=== PATIENT | male | born 1975 | race Caucasian/White ===

== ENCOUNTER 2023-07-23 13:51 | Emergency (ER) | payer OTHER ==
--- NOTE | 2023-07-23 14:56 | ED ---
General Adult HPI - General Source: patient, RN notes reviewed Mode of arrival: ambulatory Limitations: no limitations <Morris Stratton - Last Filed: 07/23/23 14:54> - General Source: patient, family, RN notes reviewed <Callie Ramsey - Last Filed: 07/23/23 20:14> <Jerry Hood - Last Filed: 07/23/23 20:34> - General Stated complaint: Galbladder Stones, Sent Pcp Time Seen by Provider: 07/23/23 14:55 - History of Present Illness Initial comments: 48-year-old male presents emergency Department chief complaint of abdominal pain. Patient states pain is right upper quadrant. Patient states he had an old shunt at PCPs office I evidence of gallstones. Patient was sent here for further evaluation. Patient states pain has been constant for the last 10 days or so. He states nothing makes the pain feel better. (Morris Stratton) Patient is a 48-year-old male presented ER with chief complaint of right upper quadrant pain. Patient was seen recently by his PCP and ultrasound of his gallbladder was completed. Patient reports that they saw multiple stones. Primary care sent him here for further evaluation. Patient reports since [place] he has been experiencing right upper quadrant pain and now back pain. It has not been able to eat much and has been having associated nausea. She reports any kind of food just makes his pain worse. Patient denies any fevers, chills, night sweats, constipation/diarrhea. (Callie Ramsey) - Related Data Allergies Allergy/AdvReac Type Severity Reaction Status Date / Time No Known Allergies Allergy Verified 07/23/23 15:23 Review of Systems ROS Other: All systems not noted in ROS Statement are negative. <Morris Stratton - Last Filed: 07/23/23 14:54> ROS Other: All systems not noted in ROS Statement are negative. <Callie Ramsey - Last Filed: 07/23/23 20:14> ROS Other: All systems not noted in ROS Statement are negative. <Jerry Hood - Last Filed: 07/23/23 20:34> ROS Statement: Those systems with pertinent positive or pertinent negative responses have been documented in the HPI. General Exam <Morris Stratton - Last Filed: 07/23/23 14:54> General appearance: alert, in no apparent distress Head exam: Present: atraumatic, normocephalic, normal inspection Respiratory exam: Present: normal lung sounds bilaterally. Absent: respiratory distress, wheezes, rales, rhonchi, stridor Cardiovascular Exam: Present: regular rate, normal rhythm, normal heart sounds. Absent: systolic murmur, diastolic murmur, rubs, gallop, clicks GI/Abdominal exam: Present: soft, tenderness (RUQ), normal bowel sounds. Absent: distended, guarding, rebound, rigid Neurological exam: Present: alert, oriented X3, CN II-XII intact Psychiatric exam: Present: normal affect, normal mood Skin exam: Present: warm, dry, intact, normal color. Absent: rash <Callie Ramsey - Last Filed: 07/23/23 20:14> - General Exam Comments Initial Comments: Visual Physical Exam Vital signs reviewed General: Well-appearing, nontoxic, no acute distress. Head: Normocephalic, atraumatic Eyes: PERRLA, EOMI ENT: Airway patent Chest: Nonlabored breathing Skin: No visual rash, normal skin tone Neuro: Alert and oriented 3 Musculoskeletal: No gross abnormalities (Morris Stratton) Course Vital Signs 07/23/23 07/23/23 15:23 18:03 Temperature 98.8 F Pulse Rate 76 67 Respiratory 20 18 Rate Blood Pressure 122/81 133/82 O2 Sat by Pulse 100 97 Oximetry Medical Decision Making <Morris Stratton - Last Filed: 07/23/23 14:54> - Lab Data Result diagrams: 07/23/23 15:33 07/23/23 15:33 <Callie Ramsey - Last Filed: 07/23/23 20:14> - Lab Data Result diagrams: 07/23/23 15:33 07/23/23 15:33 <Jerry Hood - Last Filed: 07/23/23 20:34> - Medical Decision Making I completed the quick note portion of this chart signed Morris Stratton PA-C (Morris Stratton) Was pt. sent in by a medical professional or institution ([facility], [employer], urgent care, hospital, or [facility]...) When possible be specific @ -PCP for cholelithiasis and possibly choledocholithiasis Did you speak to anyone other than the patient for history (EMS, parent, family, police, friend...)? What history was obtained from this source @ - providing some HPI Did you review nursing and triage notes (agree or disagree)? Why? @ -I reviewed and agree with nursing and triage notes Were old charts reviewed (outside hosp., previous admission, EMS record, old EKG, old radiological studies, urgent care reports/EKG's, [facility] records)? Report findings @ -Yes, I reviewed US gallbladder from 07/22/23 which showed fatty infiltration of the liver. Multiple cholelithiasis packed gallbladder. The pancreas is not adequately visualized. Common bile duct is 4 mm. Labs drawn on 07/21/23 significant for total bilirubin was 6.3, alk phos 198, AST 562, ALT 682. Differential Diagnosis (chest pain, altered mental status, abdominal pain women, abdominal pain men, vaginal bleeding, weakness, fever, dyspnea, syncope, headache, dizziness, GI bleed, back pain, seizure, CVA, palpatations, mental health, musculoskeletal)? @ -Differential Abdominal Pain Men: Appendicitis, cholecystitis, diverticulosis, ischemic bowel, pancreatitis, hepatitis, UTI, gastroenteritis, AAA, incarcerated hernia, bowel obstruction, constipation, inflammatory bowel, hepatitis, peptic ulcer disease, splenic infarction, perforated viscus, testicular torsion, this is not meant to be an all-inclusive list EKG interpreted by me (3pts min.). @ -None done X-rays interpreted by me (1pt min.). @ -None done CT interpreted by me (1pt min.). @ -None done U/S interpreted by me (1pt. min.). @ -None done What testing was considered but not performed or refused? (CT, X-rays, U/S, labs)? Why? @ -None What meds were considered but not given or refused? Why? @ -[Patient refused nausea medication, zofran. Did you discuss the management of the patient with other professionals (professionals i.e. , PA, [employer], lab, RT, psych nurse, social media coordinator, cable television line technician, teacher, administrative hearing officer, supervisor case loading)? Give summary @ None Was smoking cessation discussed for >3mins.? @ -No Was critical care preformed (if so, how long)? @ -No Were there social determinants of health that impacted care today? How? (Homelessness, low income, unemployed, alcoholism, drug addiction, transportation, low edu. Level, literacy, decrease access to med. care, chcf, rehab)? @ -No Was there de-escalation of care discussed even if they declined (Discuss DNR or withdrawal of care, Hospice)? DNR status @ -No What co-morbidities impacted this encounter? (DM, HTN, Smoking, COPD, CAD, Cancer, CVA, ARF, Chemo, Hep., AIDS, mental health diagnosis, sleep apnea, mor bid obesity)? @ -Diabetes mellitus and obesity Was patient admitted / discharged? Hospital course, mention meds given and route, prescriptions, significant lab abnormalities, going to OR and other pertinent info. @ -[Transferred. Patient is a 48-year-old male presented ER with chief complaint of right upper quadrant pain. Vitals stable. Exam was significant for extremely tender right upper quadrant, positive Tiff sign. I reviewed US gallbladder from 07/22/23 which showed fatty infiltration of the liver. Multiple cholelithiasis packed gallbladder. The pancreas is not adequately visualized. Common bile duct is 4 mm. Labs drawn on 07/21/23 significant for total bilirubin was 6.3, alk phos 198, AST 562, ALT 682. Labs obtained in the ER today are significant for white blood cell count of 10.9, total bili 1.4, AST 193, ALT 693, Alk phos 247. US gallbladder shows cholelithiasis. Common bile duct measuring 0.7 cm. Patient was started on IV maintenance fluids, pain medication, and Zosyn. Blood cultures pending. I discussed lab and imaging findings with patient and , at bedside. I discussed with patient that we do not have GI and he would have to be transferred to a facility with a higher level of care. Patient was in agreement with plan. Patient signed out to Dr. Hood pending transfer to . Undiagnosed new problem with uncertain prognosis? @ -No Drug Therapy requiring intensive monitoring for toxicity (Heparin, Nitro, Insulin, Cardizem)? @ -No Were any procedures done? @ -No Diagnosis/symptom? @ -Choledocholithiasis Acute, or Chronic, or Acute on Chronic? @ -Acute Uncomplicated (without systemic symptoms) or Complicated (systemic symptoms)? @ -Complicated Side effects of treatment? @ -No Exacerbation, Progression, or Severe Exacerbation? @ -No Poses a threat to life or bodily function? How? (Chest pain, USA, VT, pneumonia, PE, COPD, DKA, ARF, appy, cholecystitis, CVA, Diverticulitis, Homicidal, Suicidal, threat to staff... and all critical care pts) @ -Yes, choledocholithiasis can lead to sepsis. (Callie Ramsey) Patient signed out to me pending transfer. Briefly, this concern for choledocholithiasis based on ultrasound as well as laboratory workup. He is having intractable abdominal pain and nausea and vomiting. Patient will be empirically placed on Zosyn and IV fluids. Initial attempt [facility] to [facility] however they're not accepting transfers. [facility] is also close to transfers. Contacted [facility] which did accept the patient. Excepting physician is GI doctor Dr. Guajardo. ER accepting physician is Dr. Damon of [facility]. (Jerry Hood) - Lab Data Lab Results 07/23/23 07/23/23 07/23/23 Range/Units 15:33 15:33 15:33 WBC 10.9 H (3.8-10.6) k/uL RBC 5.38 (4.30-5.90) m/uL Hgb 15.7 (13.0-17.5) gm/dL Hct 49.2 (39.0-53.0) % MCV 91.3 (80.0-100.0) fL MCH 29.1 (25.0-35.0) pg MCHC 31.8 (31.0-37.0) g/dL RDW 13.5 (11.5-15.5) % Plt Count 233 (150-450) k/uL MPV 8.6 Neutrophils % 61 % Lymphocytes % 27 % Monocytes % 6 % Eosinophils % 3 % Basophils % 1 % Neutrophils # 6.6 (1.3-7.7) k/uL Lymphocytes # 3.0 (1.0-4.8) k/uL Monocytes # 0.7 (0-1.0) k/uL Eosinophils # 0.3 (0-0.7) k/uL Basophils # 0.1 (0-0.2) k/uL Sodium 139 (137-145) mmol/L Potassium 4.6 (3.5-5.1) mmol/L Chloride 103 (98-107) mmol/L Carbon Dioxide 25 (22-30) mmol/L Anion Gap 11 mmol/L BUN 16 (9-20) mg/dL Creatinine 0.72 (0.66-1.25) mg/dL Est GFR (CKD-EPI)AfAm >90 (>60 ml/min/1.73 sqM) Est GFR (CKD-EPI)NonAf >90 (>60 ml/min/1.73 sqM) Glucose 106 H (74-99) mg/dL Plasma Lactic Acid Severino 1.0 (0.7-2.0) mmol/L Calcium 9.2 (8.4-10.2) mg/dL Total Bilirubin 1.4 H (0.2-1.3) mg/dL AST 193 H (17-59) U/L ALT 693 H (4-49) U/L Alkaline Phosphatase 247 H (38-126) U/L Total Protein 7.3 (6.3-8.2) g/dL Albumin 4.4 (3.5-5.0) g/dL Lipase 182 (23-300) U/L Urine Color Urine Appearance (Clear) Urine pH (5.0-8.0) Ur Specific Terrell (1.001-1.035) Urine Protein (Negative) Urine Glucose (UA) (Negative) Urine Ketones (Negative) Urine Blood (Negative) Urine Nitrite (Negative) Urine Bilirubin (Negative) Urine Urobilinogen (<2.0) mg/dL Ur Leukocyte Esterase (Negative) 07/23/23 Range/Units 16:04 WBC (3.8-10.6) k/uL RBC (4.30-5.90) m/uL Hgb (13.0-17.5) gm/dL Hct (39.0-53.0) % MCV (80.0-100.0) fL MCH (25.0-35.0) pg MCHC (31.0-37.0) g/dL RDW (11.5-15.5) % Plt Count (150-450) k/uL MPV Neutrophils % % Lymphocytes % % Monocytes % % Eosinophils % % Basophils % % Neutrophils # (1.3-7.7) k/uL Lymphocytes # (1.0-4.8) k/uL Monocytes # (0-1.0) k/uL Eosinophils # (0-0.7) k/uL Basophils # (0-0.2) k/uL Sodium (137-145) mmol/L Potassium (3.5-5.1) mmol/L Chloride (98-107) mmol/L Carbon Dioxide (22-30) mmol/L Anion Gap mmol/L BUN (9-20) mg/dL Creatinine (0.66-1.25) mg/dL Est GFR (CKD-EPI)AfAm (>60 ml/min/1.73 sqM) Est GFR (CKD-EPI)NonAf (>60 ml/min/1.73 sqM) Glucose (74-99) mg/dL Plasma Lactic Acid Severino (0.7-2.0) mmol/L Calcium (8.4-10.2) mg/dL Total Bilirubin (0.2-1.3) mg/dL AST (17-59) U/L ALT (4-49) U/L Alkaline Phosphatase (38-126) U/L Total Protein (6.3-8.2) g/dL Albumin (3.5-5.0) g/dL Lipase (23-300) U/L Urine Color Yellow Urine Appearance Clear (Clear) Urine pH 6.0 (5.0-8.0) Ur Specific Terrell 1.024 (1.001-1.035) Urine Protein Trace H (Negative) Urine Glucose (UA) Negative (Negative) Urine Ketones Negative (Negative) Urine Blood Negative (Negative) Urine Nitrite Negative (Negative) Urine Bilirubin Negative (Negative) Urine Urobilinogen <2.0 (<2.0) mg/dL Ur Leukocyte Esterase Negative (Negative) Disposition <Morris Stratton - Last Filed: 07/23/23 14:54> <Callie Ramsey - Last Filed: 07/23/23 20:14> Time of Disposition: 20:30 - Out of Hospital Transfer - Req. Specs Out of Hospital Transfer - Requested Specifics: Other Emergency Center (transfer for GI eval for ERCP for concern for choledocholithiaisis) <Jerry Hood - Last Filed: 07/23/23 20:34> Clinical Impression: Choledocholithiasis Disposition: OTHER INSTITUTION NOT DEFINED Condition: Stable Referrals: Pooja,Shanita, DO [Primary Care Provider] - 1-2 days
[2023-07-23 15:47] LABS: Appearance,Urine Clear (Clear); Bilirubin,Urine Negative (Negative); Blood,Urine Negative (Negative); Color,Urine Yellow; Glucose,Urine (UA) Negative (Negative); Ketones,Urine Negative (Negative); Leukocyte Esterase,Urine Negative (Negative); Nitrite,Urine Negative (Negative); Protein,Urine Trace (Negative); Specific Gravity,Urine 1.024 (1.001-1.035); Urobilinogen,Urine <2.0 mg/dL (<2.0)
[2023-07-23 15:58] LABS: Basophils # (A) 0.1 k/uL (0-0.2); Basophils % (A) 1 %; Eosinophils # (A) 0.3 k/uL (0-0.7); Eosinophils % (A) 3 %; HCT 49.2 % (39.0-53.0); HGB 15.7 gm/dL (13.0-17.5); Lymphocytes % (A) 27 %; MCH 29.1 pg (25.0-35.0); MCHC 31.8 g/dL (31.0-37.0); MCV 91.3 fL (80.0-100.0); Mean Platelet Volume 8.6; Monocytes # (A) 0.7 k/uL (0-1.0); Monocytes % (A) 6 %; Neutrophils # (A) 6.6 k/uL (1.3-7.7); Neutrophils % (A) 61 %; Platelet Count 233 k/uL (150-450); RBC 5.38 m/uL (4.30-5.90); RDW 13.5 % (11.5-15.5); WBC 10.9 k/uL (3.8-10.6)
[2023-07-23 16:10] LABS: ALT 693 U/L (4-49); AST 193 U/L (17-59); African American GFR (CKD) >90 (>60 ml/min/1.73 sqM); Albumin 4.4 g/dL (3.5-5.0); Alkaline Phosphatase 247 U/L (38-126); Anion Gap 11 mmol/L; Blood Urea Nitrogen 16 mg/dL (9-20); Calcium 9.2 mg/dL (8.4-10.2); Carbon Dioxide 25 mmol/L (22-30); Chloride 103 mmol/L (98-107); Glucose 106 mg/dL (74-99); Lipase 182 U/L (23-300); Non-African American GFR(CKD) >90 (>60 ml/min/1.73 sqM); Potassium 4.6 mmol/L (3.5-5.1); Sodium 139 mmol/L (137-145); Total Bilirubin 1.4 mg/dL (0.2-1.3); Total Protein 7.3 g/dL (6.3-8.2)
[2023-07-23] MEDS ORDERED: KETOROLAC 15 MG/ML 1 ML VIAL IVP STA (17:33)
[2023-07-23] MEDS ORDERED: SODIUM CHLORIDE 0.9% 1,000 ML IV STA ×2 (17:33→20:05)
[2023-07-23] MEDS ORDERED: ONDANSETRON 4 MG/2 ML VIAL IVP STA (17:33)
[2023-07-23 18:09] VITALS: RESP 18
[2023-07-23] MEDS ORDERED: PIPERACILLIN-TAZOBACTAM 3.375 GM in SODIUM CHLORIDE 0.9% 100 ML IVPB STA (18:50)
--- NOTE | 2023-07-23 19:02 | US ---
EXAMINATION TYPE: US gallbladder DATE OF EXAM: 07/23/2023 COMPARISON: NONE CLINICAL INDICATION: Male, 48 years old with history of pain; patient had ultrasound yesterday, told he had GB stones and to go to hospital, abd pain, no N/V TECHNIQUE: Multiple sonographic images of the right upper quadrant are obtained. FINDINGS: EXAM MEASUREMENTS: Liver Length: 20.0 cm Gallbladder Wall: 0.3 cm CBD: 0.7 cm Right Kidney: 11.8 x 5.9 x 6.2 cm REQUIREMENTS MANAGER NOTES:large habitus and gas limits study Pancreas: portion seen appear wnl Liver: heterogeneous and difficult to penetrate, probable fatty liver Gallbladder: +LIU sign, wall borderline at 3mm, no gutter fluid seen Evidence for sonographic Tate's sign: yes CBD: wnl Right Kidney: wnl IMPRESSION: 1. No evidence for acute process. 2. Hepatic steatosis. 3. Cholelithiasis
[2023-07-23] MEDS ORDERED: HYDROmorphone 1 MG/ML 1 ML SYRINGE IVP PRN (20:05)
[2023-07-23] MEDS ORDERED: METOCLOPRAMIDE 5 MG/ML 2 ML VIAL IVP STA (20:06)
[2023-07-23 21:22] VITALS: BP 128/83; PULSE 60; TEMP 98.1
== END 2023-07-23 21:45 | disposition other institution (70) ==
LOC: EC 13:51
DX: K80.70 Calculus of gallbladder and bile duct without cholecystitis without obstruction (principal)
CPT/HCPCS: 99285 ×2; 96365 ×2; 96375 ×4; 96361 ×4; 36415; 80053; 83605; 83690; 85025; 81003; 87040; 76705; J2543; J2765; J1885